=== PATIENT | female | born 1980 | race Caucasian/White ===

== ENCOUNTER 2017-07-14 21:04 | Emergency (ER) | payer OTHER ==
[~2017-07-14 21:04] MED LIST: BLM PO
--- NOTE | 2017-07-14 21:35 | ED CARDIAC/CP/PALPITATIONS ---
History of Present Illness General Chief Complaint: Chest Pain Stated Complaint: CP RADIATING INTO NECK Source: patient Exam Limitations: no limitations Vital Signs & Intake/Output Vital Signs & Intake/Output Vital Signs Date Time Temp Pulse Resp B/P B/P Pulse O2 O2 Flow FiO2 Mean Ox Delivery Rate 07/14 2301 98.6 91 16 133/84 97 Room Air 07/14 2131 98.3 84 22 112/65 98 ED Intake and Output 07/15 0000 07/14 1200 Intake Total 100 Output Total Balance 100 Intake, Oral 100 Patient 255 lb Weight Allergies Coded Allergies: MDX - Penicillin (PENICILLIN) (Intermediate, HIVES 02/19/15) Reconcile Medications Ibuprofen 800 MG TABLET 1 TAB PO TID PRN PAIN LIDO/MAAL/SY (Magic Mouthwash) (Lido-Visc2% 30ML/[id number],MAALOX 120ml) 270 ML LATONIA 10 ML PO Q8H PRN sore throat SWISH AND SWALLOW Triage Note: PER PT CHEST "TIGHTNESS" X 2 DAYS FEELS LIKE "PINCHED NERVE IN NECK" CONSTANT NO BETTER OR WORSE THEN ONSET PAIN 07/18 Triage Nurses Notes Reviewed? yes Onset: Abrupt Duration: day(s): Timing: recent history Quality/Severity: moderate Location: central Radiation: no radiation Activities at Onset: none Associated Symptoms: left sided chest pain : No Patient currently breastfeeds: No HPI: 37 yo woman in prior good health presents with 2-3 days of chest pain, worse with palpation. She was seen at urgent care center and was referred here for further evaluation. She has no cough, phlegm, wheeze, chills, fever. Past History Travel History Traveled to [place] past 21 day No Medical History Any Pertinent Medical History? 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 No Review of Systems Review of Systems Constitutional: Reports: no symptoms. EENTM: Reports: no symptoms. Respiratory: Reports: no symptoms. Cardiovascular: Reports: no symptoms. GI: Reports: no symptoms. Genitourinary: Reports: no symptoms. Musculoskeletal: Reports: no symptoms. Skin: Reports: no symptoms. Neurological/Psychological: Reports: no symptoms. Hematologic/Endocrine: Reports: no symptoms. Immunologic/Allergic: Reports: no symptoms. All Other Systems: Reviewed and Negative Physical Exam Physical Exam General Appearance: well developed/nourished, no apparent distress Head: atraumatic, normal appearance Eyes: Bilateral: normal appearance. Ears, Nose, Throat: normal pharynx, normal ENT inspection Neck: normal inspection, supple, full range of motion Respiratory: normal breath sounds, no respiratory distress, left sided parasternal chest wall tenderness. Cardiovascular: regular rate/rhythm Gastrointestinal: normal bowel sounds, soft, non-tender, no organomegaly Back: normal inspection, normal range of motion Extremities: normal inspection, normal capillary refill, normal range of motion, no edema Neurologic/Psych: no motor/sensory deficits, awake, alert, oriented x 3 Skin: intact, normal color, warm/dry Core Measures ACS in differential dx? No CVA/TIA Diagnosis No Sepsis Present: No Sepsis Focused Exam Completed? No Progress Differential Diagnosis: AMI, costochondritis, musculoskeletal pain Plan of Care: Orders Procedure Date/time Status TROPONIN LEVEL 07/15 2135 Complete HUMAN BETA HCG SCREEN 07/15 2135 Complete D-DIMER 07/15 2135 Complete COMPREHENSIVE METABOLIC PANEL 07/15 2135 Complete CBC WITHOUT DIFFERENTIAL 07/15 2135 Complete EKG 07/14 2106 Active Laboratory Tests 07/14/172137: Anion Gap 15, Estimated GFR > 60, BUN/Creatinine Ratio 28.0 H, Glucose 160 H, Calcium 9.7, Total Bilirubin 0.6, AST 84 H, ALT 67 H, Alkaline Phosphatase 52, Troponin I < 0.01, Total Protein 7.6, Albumin 4.2, Globulin 3.4, Albumin/ Globulin Ratio 1.2, Total Beta HCG NEGATIVE, D-Dimer High Sensitivty < 200, CBC w Diff NO MAN DIFF REQ, RBC 4.59, MCV 86.3, MCH 28.9, MCHC 33.5, RDW 13.3, MPV 7.6, Gran % 61.9, Lymphocytes % 32.2, Monocytes % 3.7, Eosinophils % 1.8, Basophils % 0.4, Absolute Granulocytes 6.7 H, Absolute Lymphocytes 3.5 H, Absolute Monocytes 0.4, Absolute Eosinophils 0.2, Absolute Basophils 0 Diagnostic Imaging: Viewed by Me: Radiology Read. Discussed w/RAD: Radiology Read. CXR Impression: PATIENT: YOVANA AGUILAR PRESENT AGE: 37 PATIENT ACCOUNT NO: [id number] : 82 LOCATION: [facility] ORDERING PHYSICIAN: Seng Young MD SERVICE DATE: 07/14/17 EXAM TYPE: RAD - XRY-PORTABLE CHEST XRAY EXAMINATION: XR PORTABLE CHEST CLINICAL INFORMATION: Chest pain. COMPARISON: None TECHNIQUE: Portable frontal view of the chest was obtained. FINDINGS: The lungs are well expanded. There is no focal consolidation, edema, or effusion. No pneumothorax. The cardiomediastinal silhouette is within normal limits. No acute osseous abnormality. IMPRESSION: No acute pulmonary findings. DICTATED BY: Johnny Bender MD DATE/TIME DICTATED: 07/14/172302 PULMONARY FELLOW:BRAYDON DATE/TIME TRANSCRIBED:07/14/172302 CONFIDENTIAL, DO NOT COPY WITHOUT APPROPRIATE AUTHORIZATION. <Electronically signed in Other Vendor System> SIGNED BY: Johnny Bender MD 07/14/172306 Initial ED EKG: normal axis, normal sinus rhythm, no acute changes Departure Departure Disposition: HOME OR SELF CARE Condition: Stable Clinical Impression Primary Impression: Chest pain Referrals: Patient Has No Primary Care Dr (PCP/Family) Departure Forms: Customer Survey General Discharge Information Prescriptions: Current Visit Scripts Ibuprofen 1 TAB PO TID PRN PAIN #30 TAB Comments 07/15/17, 0:10am... pt with several days of chest pain, benign ekg, negative trop/ dimer, reproducible chest wall tendernes... pt safe for discharge with nsaids... close follow up advised. Critical Care Note Critical Care Note Critical Care Time: non-applicable
[2017-07-14 21:51] LABS: ABSOLUTE BASOPHIL COUNT 0 /CUMM (0.0-0.2); ABSOLUTE EOSINOPHIL COUNT 0.2 /CUMM (0.0-0.7); ABSOLUTE GRANULOCYTE CT 6.7 /CUMM (1.4-6.5); ABSOLUTE LYMPH COUNT 3.5 /CUMM (1.2-3.4); ABSOLUTE MONOCYTE COUNT 0.4 /CUMM (0.10-0.60); BASOPHIL % 0.4 % (0.0-2.0); EOSINOPHIL % 1.8 % (0-5); GRANULOCYTE % 61.9 % (42.2-75.2); HEMATOCRIT 39.6 % (37-47); MEAN CORPUSCULAR HGB 28.9 PG (27.0-31.0); MEAN CORPUSCULAR HGB CONC 33.5 G/DL (33.0-37.0); MEAN CORPUSCULAR VOLUME 86.3 FL (81.0-99.0); MEAN PLATELET VOLUME 7.6 FL (7.4-10.4); PLATELET COUNT 270 /CUMM (130-400); RBC DISTRIBUTION WIDTH 13.3 % (11.5-14.5); RED BLOOD CELL CT 4.59 /CUMM (4.20-5.40); WHITE BLOOD CELL COUNT 10.9 /CUMM (4.8-10.8)
[2017-07-14 23:01] VITALS: BP 133/84
[2017-07-14] MEDS ORDERED: IBUPROFEN800 M1 PO (23:02)
--- NOTE | 2017-07-14 23:07 | RADIOLOGY REPORT ---
EXAMINATION: XR PORTABLE CHEST CLINICAL INFORMATION: Chest pain. COMPARISON: None TECHNIQUE: Portable frontal view of the chest was obtained. FINDINGS: The lungs are well expanded. There is no focal consolidation, edema, or effusion. No pneumothorax. The cardiomediastinal silhouette is within normal limits. No acute osseous abnormality. IMPRESSION: No acute pulmonary findings.
== END 2017-07-15 00:21 ==
LOC: ERH 21:04
PROVIDERS: Pediatrics
DX: R07.89 Other chest pain (principal)
CPT/HCPCS: 71045; 93005; 93010